=== PATIENT | male | born 1980 | race African-American/Black ===

== ENCOUNTER 2021-04-20 13:58 | Emergency (ER) | payer OTHER ==
[~2021-04-20] VITALS: Ht 177.8 cm; Wt 65.0 kg
[2021-04-20 16:06] LABS: HEMATOCRIT 47.9 % (39.0-50.0); HEMOGLOBIN 15.5 g/dl (14.0-18.0); IMMATURE GRANULOCYTES 0.2 % (0.0-5.0); MEAN CELL VOLUME 92.6 fL CALC (80.0-100.0); MEAN CORPUSCULAR HGB CONC 32.4 g/dL CAL (32.0-36.0); NEUT# 2.79 thou/uL (1.82-7.42); RED BLOOD COUNT 5.17 mill/uL (4.70-6.10); RED CELL DISTRI WIDTH 12.2 % (11.5-15.5)
[2021-04-20 16:21] LABS: URINE BILIRUBIN - DIPSTICK NEGATIVE (NEGATIVE); URINE BLOOD DIPSTICK NEGATIVE (NEGATIVE); URINE COLOR YELLOW; URINE GLUCOSE - DIPSTICK NEGATIVE (NEGATIVE); URINE KETONE TRACE mg/dL (NEGATIVE); URINE LEUK ESTERASE NEGATIVE (NEGATIVE); URINE PH 6.5 (4.5-8.0); URINE PROTEIN - DIPSTICK NEGATIVE (NEG-TRACE); URINE SPECIFIC GRAVITY 1.025; URINE UROBILINOGEN - DIPSTICK 0.2 E.U./dL (0.2)
[2021-04-20 16:24] LABS: URINE NITRITE - DIPSTICK NEGATIVE (Negative)
[2021-04-20 17:11] LABS: ALBUMIN 4.3 g/dL (3.2-5.0); ALKALINE PHOSPHATASE 69 u/l (38-126); ANION GAP 11 (6-22 (CALC)); BILIRUBIN, TOTAL 0.8 mg/dL (0.0-1.4); BUN 10 mg/dL (9-20); BUN/CREATININE RATIO 11 (12-20 (CALC)); CARBON DIOXIDE 30 mmol/l (22-30); CHLORIDE 101 mmol/l (95-108); CREATININE 0.9 mg/dL (0.7-1.3); GFR > 60 ML/MIN (>=60 (CALC)); GFR FOR AFR.AMER. > 60 ML/MIN (>=60 (CALC)); LIPASE 49 u/l (23-300); POTASSIUM 4.2 mmol/l (3.5-5.1); SGOT/AST 24 u/l (17-59); SODIUM 138 mmol/l (137-146); TOTAL PROTEIN 8.6 g/dL (6.3-8.2)
[2021-04-20 21:20] VITALS: BP 125/74
== END 2021-04-20 21:38 | disposition home or self-care (01) | DRG 313 ==
LOC: ED 13:58
PROVIDERS: Emergency Medicine
DX: R07.89 Other chest pain (principal); U07.1 COVID-19

== ENCOUNTER 2021-08-26 12:39 | Observation (INO) | payer OTHER ==
[~2021-08-26] VITALS: Ht 172.7 cm; Wt 78.0 kg
[~2021-08-26 12:39] MED LIST: HYDROXYZ HCL25 MG PO; KETOROLAC10 MG PO; PHRENILIN1 TAB PO; REGLAN10 MG PO
[2021-08-26 13:26] LABS: URINE BILIRUBIN - DIPSTICK NEGATIVE (NEGATIVE); URINE BLOOD DIPSTICK NEGATIVE (NEGATIVE); URINE COLOR YELLOW; URINE GLUCOSE - DIPSTICK NEGATIVE (NEGATIVE); URINE KETONE NEGATIVE (NEGATIVE); URINE LEUK ESTERASE NEGATIVE (NEGATIVE); URINE PH 6.5 (4.5-8.0); URINE PROTEIN - DIPSTICK NEGATIVE (NEG-TRACE); URINE SPECIFIC GRAVITY <=1.005; URINE UROBILINOGEN - DIPSTICK 0.2 E.U./dL (0.2)
[2021-08-26 13:27] LABS: URINE NITRITE - DIPSTICK NEGATIVE (Negative)
[2021-08-26 13:31] LABS: HEMATOCRIT 43.2 % (39.0-50.0); HEMOGLOBIN 14.5 g/dl (14.0-18.0); IMMATURE GRANULOCYTES 0.2 % (0.0-5.0); MEAN CORPUSCULAR HGB 30.2 pG CALC (26.0-32.0); MEAN CORPUSCULAR HGB CONC 33.6 g/dL CAL (32.0-36.0); NEUT# 3.51 thou/uL (1.82-7.42); RED BLOOD COUNT 4.8 mill/uL (4.70-6.10); RED CELL DISTRI WIDTH 12.1 % (11.5-15.5)
[2021-08-26 13:46] LABS: ALBUMIN 4.4 g/dL (3.2-5.0); ALKALINE PHOSPHATASE 68 u/l (38-126); AMYLASE 112 u/l (30-110); ANION GAP 15 (6-22 (CALC)); BILIRUBIN, TOTAL 0.7 mg/dL (0.0-1.4); BUN 11 mg/dL (9-20); BUN/CREATININE RATIO 12 (12-20 (CALC)); CARBON DIOXIDE 25 mmol/l (22-30); CHLORIDE 104 mmol/l (95-108); CREATININE 0.9 mg/dL (0.7-1.3); ETHYL ALCOHOL 0 mg/dl (0-30); GFR FOR AFR.AMER. > 60 ML/MIN (>=60 (CALC)); GFR OTHER RACES > 60 ML/MIN (>=60 (CALC)); LIPASE 56 u/l (23-300); POTASSIUM 3.7 mmol/l (3.5-5.1); SGOT/AST 27 u/l (17-59); SODIUM 140 mmol/l (137-146); TOTAL PROTEIN 8.5 g/dL (6.3-8.2)
[2021-08-26 17:05] VITALS: BP 117/77
[2021-08-26 18:49] VITALS: BP 122/86
[2021-08-27 03:29] VITALS: BP 120/86
[2021-08-27 06:38] VITALS: BP 112/78
[2021-08-27 08:10] VITALS: BP 112/78
[2021-08-27] MEDS ORDERED: OMEPRAZOLE20 MG PO (10:43)
[2021-08-27 11:13] VITALS: BP 135/90
[2021-08-27 11:15] VITALS: BP 131/87
[2021-08-27 11:30] VITALS: BP 123/85
== END 2021-08-27 12:33 | disposition home or self-care (01) | DRG 392 ==
LOC: ED 12:39 → ED-I 13:20 → ED 15:04 → MS2 15:05
PROVIDERS: ADMIT Surgery; ATTEND Surgery
PROC: 0DB48ZX Excision of Esophagogastric Junction, Via Natural or Artificial Opening Endoscopic, Diagnostic (ICD-10-PCS; principal; 2021-08-27)
PROC: 0DB58ZX Excision of Esophagus, Via Natural or Artificial Opening Endoscopic, Diagnostic (ICD-10-PCS; 2021-08-27)
DX: K21.9 Gastro-esophageal reflux disease without esophagitis (principal); K44.9 Diaphragmatic hernia without obstruction or gangrene; R74.8 Abnormal levels of other serum enzymes; Z20.822 Contact with and (suspected) exposure to COVID-19
CPT/HCPCS: G0378; S0164